=== PATIENT | female | born 1980 | race African-American/Black ===

== ENCOUNTER 2017-10-25 20:26 | Emergency (ER) | payer MEDICAID ==
[~2017-10-25] VITALS: Ht 154.9 cm; Wt 63.6 kg
[2017-10-25] MEDS ORDERED: GABA-531 PO (20:45)
[2017-10-25] MEDS ORDERED: PROP20TA18 PO (20:45)
[2017-10-25] MEDS ORDERED: CLON.2 PO (20:45)
[2017-10-25] MEDS ORDERED: MORP5L PO (20:45)
[2017-10-25] MEDS ORDERED: HYDROCODONE/ACETAMINOPHEN 5-325 MG TABLET PO ONE (21:30)
[2017-10-25] MEDS ORDERED: KETOROLAC TROMETHAMINE 60 MG/2 ML VIAL IM ONE (23:00)
[2017-10-25 23:17] VITALS: BP 124/88
== END 2017-10-25 23:17 | disposition home or self-care (01) ==
LOC: EMS 20:27
DX: S93.402A Sprain of unspecified ligament of left ankle, initial encounter (principal); M54.5 Low back pain; G89.29 Other chronic pain; I10 Essential (primary) hypertension; W01.0XXA Fall on same level from slipping, tripping and stumbling without subsequent striking against object, initial encounter; Y93.89 Activity, other specified; Y92.89 Other specified places as the place of occurrence of the external cause; Y99.8 Other external cause status
CPT/HCPCS: 72100; 73610; 81025; 90471; 99284; J1885